=== PATIENT | male | born 1945 | race Caucasian/White ===

== ENCOUNTER 2022-07-27 06:41 | Inpatient (IN) ==
[2022-07-27] MEDS ORDERED: Ondansetron 4 MG/2 ML VIAL IVP ONE (07:04)
[2022-07-27] MEDS ORDERED: 0.9 % Sodium Chloride 1,000 ML IVC ONE (07:04)
[2022-07-27 07:42] LABS: Basophils % 0.3 %; Eosinophils # 0.2 K/mcL (0.0-0.6); Eosinophils % 1.8 %; Immature Granulocytes % 0.6 % (0-4); Lymphocytes # 1.5 K/mcL (0.6-4.6); Lymphocytes % 13.4 %; Mean Corpuscular HGB Conc 32.6 g/dL (31.6-35.5); Mean Corpuscular Hemoglobin 28.2 pg (28.0-33.3); Mean Corpuscular Volume 86.5 fL (83.0-100.0); Mean Platelet Volume 10.4 fL (9.4-12.4); Monocytes # 0.8 K/mcL (0.0-1.3); Monocytes % 7.3 %; Neutrophils # 8.3 K/mcL (1.6-8.9); Platelet Count 197 K/mcL (140-400); Red Blood Count 4.97 M/mcL (4.19-5.50); Red Cell Distribution Width 14.7 % (11.5-14.5); Segmented Neutrophils % 76.6 %; White Blood Count 10.9 K/mcL (4.3-11.1)
[2022-07-27 07:54] LABS: INR 1.2; Prothrombin Time 13.3 Seconds (9.4-12.1)
[2022-07-27 08:02] LABS: Alanine Aminotransferase 15 Units/L (7-52); Albumin 3.9 g/dL (3.5-5.7); Albumin/Globulin Ratio 1.2 (1.1-2.2); Alkaline Phosphatase 83 Units/L (34-104); Aspartate Amino Transferase 16 Units/L (13-39); BUN/Creatinine Ratio 17 (6-26); Bilirubin,Total 0.7 mg/dL (0.3-1.0); Blood Urea Nitrogen 24 mg/dL (8-23); Calcium 9.1 mg/dL (8.6-10.3); Carbon Dioxide 24 mEq/L (23-29); Chloride 103 mEq/L (98-107); Creatine Kinase 116 Units/L (30-223); Globulin 3.2 g/dL (2.4-3.5); Glucose 149 mg/dL (70-105); Magnesium 1.9 mg/dL (1.6-2.6); Osmolality,Calculated 291 (280-300); Potassium 3.8 mEq/L (3.5-5.1); Sodium 137 mEq/L (136-145); Total Protein 7.1 g/dL (6.4-8.9)
[2022-07-27 08:05] LABS: Troponin I < 0.03 ng/mL (< 0.04)
[2022-07-27 09:51] LABS: Bilirubin,Urine Negative (Negative); Blood,Urine Negative (Negative); Clarity,Urine Slightly Cloudy (Clear); Color,Urine Amber (Yellow); Glucose,Urine (UA) Normal (Normal); Ketones,Urine Negative (Negative); Leukocyte Esterase,Urine Negative (Negative); Nitrite,Urine Negative (Negative); Protein,Urine 30 mg/dL (Neg-Trace); Specific Gravity,Urine 1.025 (1.010-1.025); Urobilinogen,Urine Normal (Normal)
[2022-07-27 10:00] LABS: Amorphous Sediment,Urine Few per hpf (None-Few); Mucus,Urine Few per lpf (None-Few); WBC,Urine 0-3 per hpf (0-3)
[2022-07-27] MEDS ORDERED: Melatonin 3 MG TABLET PO PRN (10:20)
[2022-07-27] MEDS ORDERED: Naloxone 0.4 MG/ML INJ IVP PRN (10:20)
[2022-07-27] MEDS ORDERED: Acetaminophen 325 MG TABLET PO PRN (10:20)
[2022-07-27] MEDS ORDERED: Ondansetron 4 MG/2 ML VIAL IVP PRN (10:20)
[2022-07-27] MEDS ORDERED: 0.9 % Sodium Chloride 1,000 ML IVC SCH (10:30)
[2022-07-27] MEDS: NIFEdipine XL (24 HR) 60 MG TAB.ER.24 PO SCH (11:42)
[2022-07-27] MEDS: Metoprolol XL (24 HR) Succ 25 MG TAB.ER.24H PO SCH (11:42)
[2022-07-27 14:32] LABS: Adenovirus Not Detected (Not Detect); Bordetella Pertussis Not Detected (Not Detect); Chlamydophila pneumoniae Not Detected (Not Detect); Coronavirus 229E Not Detected (Not Detect); Coronavirus HKU1 Not Detected (Not Detect); Coronavirus NL63 Not Detected (Not Detect); Coronavirus OC43 Not Detected (Not Detect); Human Metapneumovirus Not Detected (Not Detect); Human Rhinovirus/Enterovirus Not Detected (Not Detect); Influenza A Subtype 2009 H1 Not Detected (Not Detect); Influenza B Not Detected (Not Detect); Mycoplasma pneumoniae Not Detected (Not Detect); Parainfluenza Virus 1 Not Detected (Not Detect); Parainfluenza Virus 2 Not Detected (Not Detect); Parainfluenza Virus 3 Not Detected (Not Detect); Parainfluenza Virus 4 Not Detected (Not Detect); Respiratory Syncytial Virus Not Detected (Not Detect); SARS-CoV-2 Not Detected (Not Detect)
[2022-07-27] MEDS: Ondansetron 4 MG/2 ML VIAL IVP PRN ×2 (14:57→19:44)
[2022-07-27] MEDS: cefTRIAXone 2,000 MG in 0.9 % Sodium Chloride Mini Bag 100 ML IVPB SCH (14:58)
[2022-07-27] MEDS: Azithromycin 500 MG in 0.9 % Sodium Chloride 250 ML IVPB SCH (15:08)
[2022-07-27] MEDS: *HR* Heparin 5,000 UNIT/ML VIAL SQ SCH (17:25)
[2022-07-28] MEDS: *HR* Heparin 5,000 UNIT/ML VIAL SQ SCH ×2 (05:15→18:21)
[2022-07-28 07:47] LABS: Hematocrit 39.9 % (37.5-50.1); Hemoglobin 13.1 g/dL (12.9-16.9); Mean Corpuscular HGB Conc 32.8 g/dL (31.6-35.5); Mean Corpuscular Hemoglobin 28.4 pg (28.0-33.3); Mean Corpuscular Volume 86.4 fL (83.0-100.0); Mean Platelet Volume 10.6 fL (9.4-12.4); Platelet Count 212 K/mcL (140-400); Red Blood Count 4.62 M/mcL (4.19-5.50); Red Cell Distribution Width 14.8 % (11.5-14.5); White Blood Count 10.4 K/mcL (4.3-11.1)
[2022-07-28 08:05] LABS: Calcium 8.6 mg/dL (8.6-10.3); Potassium 3.8 mEq/L (3.5-5.1)
[2022-07-28] MEDS: Aspirin Enteric Coated 81 MG Tablet PO SCH (09:32)
[2022-07-28] MEDS: cefTRIAXone 2,000 MG in 0.9 % Sodium Chloride Mini Bag 100 ML IVPB SCH (09:32)
[2022-07-28] MEDS: NIFEdipine XL (24 HR) 60 MG TAB.ER.24 PO SCH (09:32)
[2022-07-28] MEDS: Metoprolol XL (24 HR) Succ 25 MG TAB.ER.24H PO SCH (09:33)
[2022-07-28] MEDS: Azithromycin 500 MG in 0.9 % Sodium Chloride 250 ML IVPB SCH (15:45)
[2022-07-29] MEDS: *HR* Heparin 5,000 UNIT/ML VIAL SQ SCH ×2 (05:13→17:02)
[2022-07-29 07:50] LABS: Basophils # 0.1 K/mcL (0.0-0.2); Basophils % 0.5 %; Eosinophils # 0.5 K/mcL (0.0-0.6); Hematocrit 41.6 % (37.5-50.1); Hemoglobin 13.5 g/dL (12.9-16.9); Immature Granulocytes % 0.3 % (0-4); Lymphocytes # 2.2 K/mcL (0.6-4.6); Lymphocytes % 22.1 %; Mean Corpuscular HGB Conc 32.5 g/dL (31.6-35.5); Mean Corpuscular Volume 86.1 fL (83.0-100.0); Mean Platelet Volume 11.8 fL (9.4-12.4); Monocytes # 0.9 K/mcL (0.0-1.3); Monocytes % 9.3 %; Neutrophils # 6.2 K/mcL (1.6-8.9); Platelet Count 170 K/mcL (140-400); Red Blood Count 4.83 M/mcL (4.19-5.50); Red Cell Distribution Width 14.9 % (11.5-14.5); Segmented Neutrophils % 62.8 %; White Blood Count 9.8 K/mcL (4.3-11.1)
[2022-07-29 08:06] LABS: Calcium 8.8 mg/dL (8.6-10.3); Potassium 4.1 mEq/L (3.5-5.1)
[2022-07-29] MEDS: NIFEdipine XL (24 HR) 60 MG TAB.ER.24 PO SCH (09:00)
[2022-07-29] MEDS: cefTRIAXone 2,000 MG in 0.9 % Sodium Chloride Mini Bag 100 ML IVPB SCH (09:01)
[2022-07-29] MEDS: Aspirin Enteric Coated 81 MG Tablet PO SCH (09:01)
[2022-07-29] MEDS: Metoprolol XL (24 HR) Succ 25 MG TAB.ER.24H PO SCH (09:01)
[2022-07-29] MEDS: Azithromycin 500 MG in 0.9 % Sodium Chloride 250 ML IVPB SCH (14:47)
[2022-07-30] MEDS: Ondansetron 4 MG/2 ML VIAL IVP PRN ×2 (03:02→09:29)
[2022-07-30] MEDS: *HR* Heparin 5,000 UNIT/ML VIAL SQ SCH (05:25)
[2022-07-30 06:58] LABS: Basophils % 0.2 %; Eosinophils % 0.2 %; Hematocrit 45.7 % (37.5-50.1); Hemoglobin 14.9 g/dL (12.9-16.9); Immature Granulocytes % 0.3 % (0-4); Lymphocytes # 1.1 K/mcL (0.6-4.6); Lymphocytes % 9.7 %; Mean Corpuscular HGB Conc 32.6 g/dL (31.6-35.5); Mean Corpuscular Hemoglobin 27.9 pg (28.0-33.3); Mean Corpuscular Volume 85.6 fL (83.0-100.0); Mean Platelet Volume 11.2 fL (9.4-12.4); Monocytes # 0.6 K/mcL (0.0-1.3); Monocytes % 5.2 %; Neutrophils # 9.5 K/mcL (1.6-8.9); Platelet Count 213 K/mcL (140-400); Red Blood Count 5.34 M/mcL (4.19-5.50); Red Cell Distribution Width 14.4 % (11.5-14.5); Segmented Neutrophils % 84.4 %; White Blood Count 11.2 K/mcL (4.3-11.1)
[2022-07-30 07:05] LABS: Calcium 9.3 mg/dL (8.6-10.3); Potassium 4.2 mEq/L (3.5-5.1)
[2022-07-30 07:24] VITALS: RESP 20
[2022-07-30] MEDS ORDERED: Pantoprazole 40 MG VIAL IVP SCH (09:25)
[2022-07-30] MEDS: cefTRIAXone 2,000 MG in 0.9 % Sodium Chloride Mini Bag 100 ML IVPB SCH (09:29)
[2022-07-30] MEDS: NIFEdipine XL (24 HR) 60 MG TAB.ER.24 PO SCH (11:42)
[2022-07-30] MEDS: Metoprolol XL (24 HR) Succ 25 MG TAB.ER.24H PO SCH (11:42)
[2022-07-30] MEDS: Aspirin Enteric Coated 81 MG Tablet PO SCH (11:43)
[2022-07-30] MEDS ORDERED: 0.9 % Sodium Chloride 1,000 ML IVC SCH (13:30)
[2022-07-30] MEDS: Azithromycin 500 MG in 0.9 % Sodium Chloride 250 ML IVPB SCH (14:16)
[2022-07-30 14:33] VITALS: BP 168/91; PULSE 85; TEMP 98.7; O2SAT 90
== END 2022-07-30 15:45 | disposition short-term general hospital (02) | DRG 194 ==
LOC: EMEROOPIK 06:41 → INPPIK 06:41
PROVIDERS: ADMIT Registered Nurse Emergency; ATTEND Registered Nurse Emergency